=== PATIENT | female | born 1945 | race Caucasian/White ===

== ENCOUNTER → 2018-05-17 11:36 | Outpatient (CLI) | payer MEDICARE, SELFPAY ==
--- NOTE | 2018-05-17 | DI.MG.S_ITS ---
BILATERAL DIGITAL SCREENING MAMMOGRAM 3D/2D WITH CAD: 05/17/2018 CLINICAL: Routine screening. Family history of breast cancer. Comparison is made to exams dated: 01/03/2016 mammogram, 01/12/2015 mammogram, 05/29/2013 mammogram, and 03/12/2012 mammogram - [facility]. The tissue of both breasts is predominantly fatty. Current study was also evaluated with a Computer Aided Detection (CAD) system. No significant masses, calcifications, or other findings are seen in either breast. There has been no significant interval change. IMPRESSION: NEGATIVE There is no mammographic evidence of malignancy. A 1 year screening mammogram is recommended. This exam was interpreted at Station ID: [id number]. NOTE: For mammograms, a report in lay terms will be sent to the patient. Approximately 15% of breast malignancies will not be visualized mammographically. In the management of a palpable breast mass, a negative mammogram must not discourage biopsy of a clinically suspicious lesion. Electronically Signed By: Lois mejia/shahana:05/17/2018 13:26:05 letter sent: Normal Exam ACR BI-RADS Category 1: Negative 3341F
== END ==
PROVIDERS: PCP Nurse Practitioner Family; Visit Provider Nurse Practitioner Family
DX: Z12.31 Encounter for screening mammogram for malignant neoplasm of breast (principal); Z80.3 Family history of malignant neoplasm of breast
CPT/HCPCS: 77063; 77067

== ENCOUNTER → 2019-04-01 11:59 | Outpatient (CLI) | payer MEDICARE, SELFPAY ==
--- NOTE | 2019-04-01 | DI.RAD.S_ITS ---
PROCEDURE: XR CERVICAL SPINE 2V OR 3V INDICATIONS: C-spine TECHNIQUE: 3 view(s) of the cervical spine were acquired. COMPARISON: None. FINDINGS: Bones: No fractures or dislocations to the T1 level. The lateral masses of C1 appear intact on the odontoid view. No suspicious bony lesions. Mild degenerative disc disease is present along the cervical spine best seen at see 45 and C5-6 Soft tissues: No prevertebral soft tissue swelling. IMPRESSION: No trauma found. Mild degenerative changes at C4-5 and C5-6 to the degraded mild spinal and foraminal stenosis may be associated. Dictated by: Ernesto Cage M.D. on 04/01/2019 at 14:56 Approved by: Ernesto Cage M.D. on 04/01/2019 at 14:57
== END ==
PROVIDERS: PCP Nurse Practitioner Family; Visit Provider Nurse Practitioner Family
DX: M47.812 Spondylosis without myelopathy or radiculopathy, cervical region (principal)
CPT/HCPCS: 72040

== ENCOUNTER → 2019-07-02 12:06 | Outpatient (CLI) | payer MEDICARE, SELFPAY ==
--- NOTE | 2019-07-02 | DI.MG.S_ITS ---
BILATERAL DIGITAL SCREENING MAMMOGRAM 3D/2D WITH CAD: 07/02/2019 CLINICAL: Routine screening. Family history of breast cancer. Comparison is made to exams dated: 05/17/2018 mammogram, 04/24/2017 mammogram - [facility], and 01/03/2016 mammogram - [facility]. The tissue of both breasts is predominantly fatty. Current study was also evaluated with a Computer Aided Detection (CAD) system. No significant masses, calcifications, or other findings are seen in either breast. There has been no significant interval change. IMPRESSION: NEGATIVE There is no mammographic evidence of malignancy. A 1 year screening mammogram is recommended. This exam was interpreted at Station ID: [id number]. NOTE: For mammograms, a report in lay terms will be sent to the patient. Approximately 15% of breast malignancies will not be visualized mammographically. In the management of a palpable breast mass, a negative mammogram must not discourage biopsy of a clinically suspicious lesion. Electronically Signed By: Anthony romano/shahana:07/02/2019 12:46:10 letter sent: Normal Exam ACR BI-RADS Category 1: Negative [id number]
== END ==
PROVIDERS: PCP Nurse Practitioner Family; Visit Provider Nurse Practitioner Family
DX: Z12.31 Encounter for screening mammogram for malignant neoplasm of breast (principal); Z80.3 Family history of malignant neoplasm of breast
CPT/HCPCS: 77063; 77067